=== PATIENT | female | born 2000 | race Caucasian/White ===

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

== ENCOUNTER 2021-10-30 17:21 | Inpatient (IN) | payer MEDICAID ==
[~2021-10-30 17:21] MED LIST: Bupivacaine 0.25% 10 ML SDV ONE
[2021-10-30 20:08] LABS: ESTIMATED GFR 127 mL/min (>60)
[2021-10-30] MEDS: Lactated Ringers 1,000 ML IV SCH ×2 (21:25→22:30)
[2021-10-30] MEDS ORDERED: Sodium Chloride 0.9% 10 ML Syringe FLUSH PRN (21:49)
[2021-10-30] MEDS ORDERED: Acetaminophen 325 MG Tab PO PRN (21:49)
[2021-10-30] MEDS ORDERED: Oxytocin/Lactated Ringers 10 UNIT/1,000 ML BAG IV SCH (21:49)
[2021-10-30] MEDS ORDERED: Nalbuphine HCl 10 MG/ 1ML Amp IVPUSH PRN (21:49)
[2021-10-30] MEDS ORDERED: fentaNYL 100 MCG/2 ML SDV EPIDUR PRN (22:09)
[2021-10-30] MEDS ORDERED: diphenhydrAMINE 50 MG/ML SDV IVPUSH PRN (22:09)
[2021-10-30] MEDS ORDERED: Bupivacaine/fentaNYL/NS 100 ML Bag EPIDUR PRN (22:09)
[2021-10-30] MEDS ORDERED: ePHEDrine 50 MG/ML SDV IVPUSH PRN (22:09)
[2021-10-31] MEDS ORDERED: Acetaminophen 325 MG Tab PO PRN (00:39)
[2021-10-31] MEDS ORDERED: Ibuprofen 600 MG Tab PO PRN (00:39)
[2021-10-31] MEDS ORDERED: Oxytocin/Lactated Ringers 10 UNIT/1,000 ML BAG IV SCH (00:39)
[2021-10-31] MEDS ORDERED: Witch Hazel Medicated Pads 40/Jar TOP PRN (00:39)
[2021-10-31] MEDS ORDERED: Hydrocortisone Acetate 25 MG Supp RECTAL PRN (00:39)
[2021-10-31] MEDS ORDERED: Magnesium Hydroxide 400 MG/5 ML Susp 30 ML Cup PO PRN (00:39)
[2021-10-31] MEDS ORDERED: Benzocaine/Menthol 20%-0.5% Spray 78 GM Cannister TOP PRN (00:39)
[2021-10-31] MEDS ORDERED: Docusate Sodium 100 MG Cap PO PRN (00:39)
[2021-10-31] MEDS ORDERED: Sodium Chloride 0.9% 10 ML Syringe FLUSH SCH (09:00)
[2021-10-31] MEDS: Prenatal Multivitamin with Calcium/Folic Acid/Iron Tab PO SCH (09:38)
[2021-11-01] MEDS ORDERED: Measles, Mumps & Rubella Vaccine 0.5 ML SDV SUBCUT ONE (10:46)
[2021-11-01] MEDS: Prenatal Multivitamin with Calcium/Folic Acid/Iron Tab PO SCH (11:16)
== END 2021-11-01 11:37 | disposition home or self-care (01) | DRG 807 ==
LOC: JD.OBCHECK 17:21 → JD.OB 21:22 → OBSVTOIN 23:53 → JD.OB 23:54
PROVIDERS: ADMIT Obstetrics & Gynecology; ATTEND Obstetrics & Gynecology
PROC: 10E0XZZ Delivery of Products of Conception, External Approach (ICD-10-PCS; principal; 2021-10-30)
PROC: 10907ZC Drainage of Amniotic Fluid, Therapeutic from Products of Conception, Via Natural or Artificial Opening (ICD-10-PCS; 2021-10-30)
PROC: 3E0R3BZ Introduction of Anesthetic Agent into Spinal Canal, Percutaneous Approach (ICD-10-PCS; 2021-10-30)
PROC: 00HU33Z Insertion of Infusion Device into Spinal Canal, Percutaneous Approach (ICD-10-PCS; 2021-10-30)
PROC: 3E0234Z Introduction of Serum, Toxoid and Vaccine into Muscle, Percutaneous Approach (ICD-10-PCS; 2021-10-30)
DX: O13.4 Gestational [pregnancy-induced] hypertension without significant proteinuria, complicating childbirth (principal); Z37.0 Single live birth; Z3A.37 37 weeks gestation of pregnancy; O71.82 Other specified trauma to perineum and vulva; O99.62 Diseases of the digestive system complicating childbirth; K21.9 Gastro-esophageal reflux disease without esophagitis; O99.334 Smoking (tobacco) complicating childbirth; F17.200 Nicotine dependence, unspecified, uncomplicated; Z23 Encounter for immunization
CPT/HCPCS: 01967; 36415; 51701; 59025; 59409; 80053; 82570; 83615; 84156; 85025; 86592; 90471; 90707; A9270-GY; J2590; J3010; J3490; J7120

== ENCOUNTER 2022-01-27 19:28 | Emergency (ER) | payer MEDICAID ==
[2022-01-27] MEDS ORDERED: Sodium Chloride 0.9% 10 ML Syringe FLUSH PRN (20:56)
[2022-01-27] MEDS ORDERED: Hyoscyamine 0.125 MG Tab.SL SL ONE (23:27)
[2022-01-27] MEDS ORDERED: Ondansetron 4 MG Tab.DIS PO ONE (23:27)
== END 2022-01-27 23:50 | disposition home or self-care (01) ==
LOC: JD.ED 19:28
DX: K80.50 Calculus of bile duct without cholangitis or cholecystitis without obstruction (principal); K21.9 Gastro-esophageal reflux disease without esophagitis; Z79.899 Other long term (current) drug therapy
CPT/HCPCS: 36415; 76705; 76705-26; 80053; 81001; 83690; 84703; 85025; 86140; 99284; A9270-GY